=== PATIENT | female | born 1950 | race Caucasian/White ===

== ENCOUNTER → 2024-03-26 | Outpatient (CLI) | payer OTHER ==
[~2024-03-26] MED LIST: IOHEXOL 350 MG/ML 100ML INFUS..BTL IV ONE; metoPROLOL tartRATE 1 MG/ML 5ML VIAL IV ONE
--- NOTE | 2024-03-26 11:23 | HMCIMG ---
CT CARDIAC ANGIO W/CONT. CCTA HISTORY: Shortness of breath COMPARISON: None TECHNIQUE: Multiple sequential axial images of the chest were obtained along with the CT angiogram of the chest study. Patient was given 100 cc of Omnipaque through intravenous route. FINDINGS: There is no evidence of pulmonary nodule or parenchymal disease. No pleural effusion or pericardial effusion is seen. There is no evidence of pneumothorax. There are normal size mediastinal and hilar lymph nodes. The heart is not enlarged. Degenerative changes of the thoracolumbar spine are present. IMPRESSION: 1. No evidence of pulmonary nodule or effusion is seen. Please see CT angiogram report of coronary arteries.
== END | disposition home or self-care (01) ==
LOC: RAH 09:04
PROVIDERS: ATTEND Internal Medicine
DX: R06.02 Shortness of breath (principal); M47.815 Spondylosis without myelopathy or radiculopathy, thoracolumbar region
CPT/HCPCS: 75574; J3490; Q9967